=== PATIENT | male | born 1990 | race Caucasian/White ===

== ENCOUNTER 2021-02-17 12:42 | Emergency (ER) | payer BC, SELFPAY ==
[2021-02-17 12:58] VITALS: BP 131/75; PULSE 75; RESP 16; TEMP 36.6; O2SAT 99
--- NOTE | 2021-02-17 14:59 | ED.URI ---
HPI - URI/Sore Throat General Chief Complaint: Upper Respiratory Infection Stated Complaint: sinus infection Time Seen by Provider: 02/17/21 14:59 Source: patient, RN notes reviewed and old records reviewed Mode of arrival: ambulatory Limitations: no limitations History of Present Illness HPI Narrative: 30-year-old male presents to [facility] care with 2 weeks of symptoms of sinus pressure, post nasal drainage, headache, ears feel plugged, occasional cough, no fevers or sore throat. Patient denies any chest pressure or any shortness of breath or wheezing. Patient states that he has been doing sinus wash, taken some Afrin, and has taken some Ibuprofen. Patient has not had COVID or influenza vaccinations.Patient reports history of sinus infections. Related Data Allergies Allergy/AdvReac Type Severity Reaction Status Date / Time No Known Allergies Allergy Verified 02/17/21 13:14 Review of Systems Review of Systems: CONSTITUTIONAL: Denies fever, chills, or sweats. EYES: Denies visual changes, redness, or discharge. ENT: Positive for rhinorrhea, congestion,no sore throat, or otalgia, ears feel plugged CARDIOVASCULAR: Denies chest pain, palpitations, or edema. RESPIRATORY: Positive cough no dyspnea. GASTROINTESTINAL: Denies abdominal pain, nausea, vomiting, or diarrhea. GENITOURINARY: Denies dysuria or hematuria. SKIN: Denies rash or itching. MUSCULOSKELETAL: Denies back pain, joint pain, or myalgia. NEUROLOGIC: Positive for some headache,no numbness, or weakness. PSYCHIATRIC: Positive for anxiety or depression. All systems reviewed & are unremarkable except as noted in HPI and below PMFSH Past Medical History Medical History (Updated 02/18/21 @ 17:45 by Radha Sarmiento NP) Anxiety and depression Kidney stones Sinus infection Surgical History Surgical History (Updated 02/18/21 @ 17:37 by Radha Sarmiento NP) No history of previous surgery Family History Family History Mother Family history of mental disorder Depression Hypertension Father Family history of mental disorder Depression Hypertension Family history of chronic obstructive pulmonary disease Grandparent Hypertension Family history of cardiovascular disease Social History Social History (Updated 02/18/21 @ 17:39 by Radha Sarmiento NP) Smoking packs per day: 1 Smoking cigarettes per day: 20.0 Years smoked: 20 Smoking pack-years: 20.00 Smoking status: Current every day smoker Second hand tobacco smoke exposure: Yes Alcohol intake: never Substance use: unknown Living arrangements: with family Gender identity (if verbalized by the patient): Male Comments At time of signature, agree with nursing past medical, surgical, social and family history. There is no relevant family history pertinent to the presenting complaint Exam Narrative: GENERAL: Well-appearing, well-nourished, and in no acute distress. HEAD: Normocephalic, atraumatic. EYES: PERRLA and EOMI. ENT: Nares red with swollen turbinates, yellow tinged rhinorrhea no epistaxis. Mucous membranes moist.TM's normal with dull light reflex, throat red with no lesionsor exudates, no tonsil enlargement,post nasal drainage present. NECK: Supple.no lymphadenopathy CHEST: Clear to auscultation. No respiratory distress. dry cough, SAO2 99% on room air. HEART: Regular rate and rhythm. No murmur heard. Normal peripheral pulses. ABDOMEN: Soft, nontender, nondistended, normal active bowel sounds. EXTREMITIES: Normal range of motion. No edema. SKIN: Warm, dry, no rash. NEURO: No focal deficits. Alert and oriented x3. Course Course Level of Care: Express Care Visit Vital Signs Vital signs: Vital Signs Temperature 36.6 C 02/17/21 12:58 Pulse Rate 75 02/17/21 12:58 Respiratory Rate 16 02/17/21 12:58 Blood Pressure 131/75 02/17/21 12:58 Pulse Oximetry 99 02/17/21 12:58 Temperature 36.6 C 02/17/21 12:5
== END 2021-02-17 15:14 | disposition home or self-care (01) ==
PROVIDERS: Emergency Provider Registered Nurse
DX: J01.40 Acute pansinusitis, unspecified (principal); Z20.822 Contact with and (suspected) exposure to COVID-19; F17.210 Nicotine dependence, cigarettes, uncomplicated
CPT/HCPCS: 87426; 99203; C9803; G0463